=== PATIENT | male | born 2000 | race African-American/Black ===

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

== ENCOUNTER 2019-02-08 14:35 | Emergency (ER) | payer OTHER, MEDICAID ==
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
[2019-02-08 15:15] LABS: MUDS CUTOFF CONCENTRATIONS CUTOFF CONC BELOW:
[2019-02-08 15:16] LABS: BILIRUBIN,URINE NEGATIVE (NEGATIVE); GLUCOSE, URINE (UA) NEGATIVE (NEGATIVE); KETONES,URINE (UA) NEGATIVE (NEGATIVE); LEUKOCYTE ESTERASE, URINE NEGATIVE (NEGATIVE); NITRITE,URINE NEGATIVE (NEGATIVE); OCCULT BLOOD,URINE NEGATIVE (NEGATIVE); PH,URINE 8.5 PH (5.0-7.5); PROTEIN,URINE NEGATIVE (NEGATIVE); UROBILINOGEN,URINE 0.2 (NORMAL) E.U./dL (NORMAL)
[2019-02-08 15:17] LABS: CLARITY,URINE CLEAR (CLEAR)
[2019-02-08 15:26] LABS: BASOPHILS % (AUTO) 0.5 %; EOSINOPHILS # (AUTO) 0.1 10^3/uL (0.0-0.7); HGB - HEMOGLOBIN 13.7 g/dL (14.0-18.0); LYMPHOCYTES # (AUTO) 1.5 10^3/uL (1.5-3.5); LYMPHOCYTES % (AUTO) 20.8 %; MEAN CORPUSCULAR HEMOGLOBIN 27.2 pg (27.0-31.0); MEAN CORPUSCULAR VOLUME 82.4 fL (80.0-94.0); MEAN PLATELET VOLUME 7.9 fL (7.4-11.4); MONOCYTES # (AUTO) 0.7 10^3/uL (0.0-1.0); MONOCYTES % (AUTO) 9.7 %; NEUTROPHILS # (AUTO) 4.7 10^3/uL (1.5-6.6); PLT - PLATELET COUNT 246 10^3/uL (130-450); RED BLOOD COUNT 5.05 10^6/uL (4.70-6.10); RED CELL DISTRIBUTION WIDTH 14.6 % (12.0-15.0)
[2019-02-08 15:32] LABS: AMPHETAMINE SCREEN,URINE NEGATIVE (NEGATIVE); BENZODIAZEPINES SCREEN, URINE NEGATIVE (NEGATIVE); COCAINE SCREEN URINE NEGATIVE (NEGATIVE); METHADONE SCREEN, URINE NEGATIVE (NEGATIVE); METHAMPHETAMINES SCREEN, URINE NEGATIVE (NEGATIVE); OPIATE SCREEN, URINE NEGATIVE (NEGATIVE); OXYCODONE SCREEN, URINE NEGATIVE (NEGATIVE); PROPOXYPHENE SCREEN, URINE NEGATIVE (NEGATIVE); TRICYCLIC ANTIDEPRESSANT,URINE NEGATIVE (NEGATIVE)
[2019-02-08 15:39] LABS: ACETAMINOPHEN < 10 ug/mL (10-30); ALBUMIN 4.1 g/dL (3.2-5.5); ALBUMIN/GLOBULIN RATIO 1.2 (1.0-2.2); ALKALINE PHOSPHATASE 56 IU/L (42-121); ALT ALANINE AMINOTRANSFERASE 27 IU/L (10-60); AST ASPARTATE AMINOTRANSFERASE 30 IU/L (10-42); BILIRUBIN,TOTAL 0.6 mg/dL (0.2-1.0); BUN - BLOOD UREA NITROGEN 20 mg/dL (6-20); CALCIUM 9.5 mg/dL (8.5-10.3); CARBON DIOXIDE - CO2 21 mmol/L (21-32); CHLORIDE 107 mmol/L (101-111); CREATININE 1.1 mg/dL (0.6-1.2); GFR - MDRD 105 (>89); GLUCOSE 86 mg/dL (70-100); LIPASE 27 U/L (22-51); SALICYLATE < 6.0 mg/dL; SODIUM 138 mmol/L (135-145); TOTAL PROTEIN 7.6 g/dL (6.7-8.2)
[2019-02-08 15:41] LABS: VALPROIC ACID (DEPAKOTE) 55.1 ug/mL
[2019-02-08 17:35] VITALS: BP 125/83
== END 2019-02-08 17:48 | disposition home or self-care (01) ==
LOC: ED 14:35
DX: R45.851 Suicidal ideations (principal); F32.9 Major depressive disorder, single episode, unspecified
CPT/HCPCS: 36415; 80053; 80164; 80306; 80307; 80320; 80329; 81001; 81003; 83690; 84443; 85025; 87086; 99283; 99284

== ENCOUNTER 2021-01-12 08:00 | Outpatient (CLI) | payer BC, MEDICAID | END 2021-01-12 23:59 | disposition home or self-care (01) | LOC: LAB.N 08:00 | PROVIDERS: ATTEND Nurse Practitioner | DX: L02.91 Cutaneous abscess, unspecified (principal) | CPT/HCPCS: 87070; 87205 ==

== ENCOUNTER 2021-02-12 16:04 | Outpatient (CLI) | payer BC, MEDICAID | END 2021-02-12 16:05 | disposition home or self-care (01) | LOC: COV 16:04 | PROVIDERS: ATTEND Surgery | DX: Z01.812 Encounter for preprocedural laboratory examination (principal); L73.2 Hidradenitis suppurativa; Z20.822 Contact with and (suspected) exposure to COVID-19 ==

== ENCOUNTER 2021-02-15 12:01 | Day surgery (SDC) | payer BC, MEDICAID ==
--- OUTSIDE RECORDS SUMMARY | 2021-02-15 12:04 | EXTERNAL MEDICAL SUMMARY RPT | Continuity of Care Document ---
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 All 20210112 Tobacco use and exposure All 20210112 Tobacco smoking status NHIS All 20210112 Never smoker All 20210112 Hidradenitis All 20210112 Hidradenitis suppurativa All 20210112 Details of drug misuse behavior All 20210112 Cutaneous abscess, unspecified All 20210112 Cellulitis and abscess of unspecified s ites All 20210112 CULTURE WOUND All 20210112 Alcohol use All 20210112 Abscess All Results Vital Signs date measurement value source 20210112 weight_standard 240 lb 20210112 weight_metric 108.86 kg 20210112 temperature_standard 98.8 F 20210112 temperature_metric 37.11 C 20210112 respiration_rate 18 /min 20210112 height_standard 67 in 20210112 height_metric 170.18 cm 20210112 heart_rate 81 /min 20210112 BP_systolic 119 mm[Hg] 20210112 BP_diastolic 75 mm[Hg] 20210112 BMI 37.73 kg/m2
[2021-02-15] MEDS ORDERED: ceFAZolin 2 GM/50 ML 2 GM/50 ML BAG IV ONE (12:16)
[2021-02-15] MEDS ORDERED: LACTATED RINGERS 1,000 ML IV ONE ×2 (12:29→15:43)
== END 2021-02-15 12:02 | disposition home or self-care (01) ==
LOC: SDS 12:01
PROVIDERS: ATTEND Surgery
DX: Z53.9 Procedure and treatment not carried out, unspecified reason (principal)
CPT/HCPCS: J0690; J7120

== ENCOUNTER 2021-02-20 06:13 | Day surgery (SDC) | payer BC, MEDICAID ==
--- OUTSIDE RECORDS SUMMARY | 2021-02-20 06:16 | EXTERNAL MEDICAL SUMMARY RPT | Continuity of Care Document ---
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
[2021-02-20] MEDS ORDERED: ceFAZolin 2 GM/50 ML 2 GM/50 ML BAG IV ONE (09:30)
[2021-02-20] MEDS ORDERED: LACTATED RINGERS 1,000 ML IV ONE (10:12)
--- NOTE | 2021-02-20 11:26 | ANESTHESIA ---
Pre-Anesthesia VS, & Labs - Diagnosis hidradenitis suppurativa - Procedure axillary wide excision Vital Signs: Temp Pulse Resp BP Pulse Ox 36.7 C 69 16 134/78 H 96 02/20/21 10:12 02/20/21 10:12 02/20/21 10:12 02/20/21 10:12 02/20/21 10:12 Height: 5 ft 9 in Weight (kg): 115.8 kg Body Mass Index: 37.7 BMI Classification: Obese - NPO >8 hours Home Medications and Allergies metFORMIN [Glucophage] 500 mg PO BID 04/13/18 Divalproex ER [Depakote ER] 500 - 1,000 mg PO BID 02/08/19 ziprasidone HCL [Geodon] 60 mg PO BID 02/13/21 Allergies/Adverse Reactions: Allergies Allergy/AdvReac Type Severity Reaction Status Date / Time No Known Drug Allergies Allergy Verified 02/08/19 14:41 Anes History & Medical History - Anesthetic History Anesthesia Complications: reports: No previous complications Family history of Anesthesia Complications: Denies Family history of Malignant Hyperthermia: Denies - Medical History Cardiovascular: reports: None Pulmonary: reports: None Gastrointestinal: reports: None Urinary: reports: None Neuro: reports: None Musculoskeletal: reports: None Endocrine/Autoimmune: reports: None Blood Disorders: reports: None Skin: reports: None Smoking Status: Never smoker Psychosocial: reports: Other (mood disorder) History of Cancer?: No - Surgical History Eyes Ears Nose Throat (EENT): reports: Tonsil/Adenoidectomy Exam General: Alert, Oriented x3, Cooperative Dental: WNL Mouth Openin Fingerbreadth Neck Mobility: Normal Mallampati classification: II Thyromental Distance: 4-6 cm Respiratory: Lungs clear Cardiovascular: Regular rate Abdomen: Normal bowel sounds Extremities: No clubbing Neurological: Normal gait Mental/Cognitive Status: Alert/Oriented X3 Plan Anesthesia Type: General Consent for Procedure(s) Verified and Reviewed: Yes Code Status: Attempt Resuscitation ASA classification: 2-Mild systemic disease Is this case an emergency?: No
[2021-02-20] MEDS ORDERED: LIDOCAINE 1% 50 ML MDV ONE (11:28)
[2021-02-20] MEDS ORDERED: BUPIVACAINE 0.5%-EPI 1:200000 PF 30 ML VIAL ONE (11:28)
[2021-02-20] MEDS ORDERED: fentaNYL 100 MCG/2 ML VIAL ONE ×2 (11:54→13:05)
[2021-02-20] MEDS ORDERED: LIDOCAINE-MPF 2% 5 ML VIAL ONE (11:54)
[2021-02-20] MEDS ORDERED: PROPOFOL 200 MG/20 ML VIAL IVP ONE (11:54)
[2021-02-20] MEDS ORDERED: MIDAZOLAM 2 MG/2 ML VIAL ONE ×2 (11:54→12:16)
[2021-02-20] MEDS ORDERED: BUPIVACAINE 0.5%-EPI 1:200000 PF 30 ML VIAL SUBQ ONE ×2 (13:01→13:48)
[2021-02-20] MEDS ORDERED: LIDOCAINE 1% 50 ML MDV ID ONE ×2 (13:01)
[2021-02-20] MEDS ORDERED: BACITRACIN ZINC OINT 14 GM TOP ONE (13:22)
[2021-02-20] MEDS ORDERED: BACITRACIN ZINC OINT 1 PACKET TOP ONE (13:22)
--- NOTE | 2021-02-20 13:58 | OPERATIVE REPORT ---
Operative Report - General Procedure Date: 02/20/21 Planned Procedure: 1. Wide local excision of right axillary hidradenitis suppurativa 2. Possible wide local excision of left axillary hidradenitis suppurativa 3. Other indicated procedures Pre-Op Diagnosis: Hidradenitis Suppuritiva, B/L axillary Procedure Performed: 1. Wide local excision of right axillary hidradenitis suppurativa 2. Reconstructive rhomboid advancement flap for right axillary defect 3. Drain placement right axilla Post Op Diagnosis: Same - Procedure Note Primary Surgeon: Opal Secondary Surgeon: Sydnie Anesthesia Provider: Nyasia Anesthesia Technique: General ET tube, General LMA, Local Pathology: Right Axillary Hidradenitis Right Axillary Deep Margin Drain/Tube Type: Esdras drain Indications: See EMR Findings: See Op Report Complications: NONE - Other Other Information/Narrative: OPERATIVE REPORT: The patient was taken to the operating room after informed consent was obtained and confirmed. The patient was kept supine on the stretcher, at which time the patient was placed for bilateral lower extremity serial compression devices and induced for general endotracheal anesthesia the patient was abducted for bilateral arms in anticipation of possible bilateral axillary wide local excision with reconstruction. The patient was already consented and identified and marked for both areas. Patient was prepped and draped in the usual sterile fashion. Timeout is called and agreed to by all in the room. With the patient appropriately positioned and again time-out called and agreed upon, a lacrimal duct probe was placed through the communicating sinus of the hidradenitis which revealed extensive disease in the right axillary region. Given the extent of this and the necessary reconstruction necessary we opted to only progress with this one side at this time given the anticipated pain. Patient is also [id number] and would be best served to do this sequentially. Findings are as follows: 1. This region was approximately 7 to 8 cm in posterior anterior dimension. It spanned craniocaudal approximately 3 to 4 cm. 2. This area would be difficult to close transversely and a appropriate longitudinal incision require extensive resection unnecessarily. Thus at this time we opted to consider a rhomboid rotational flap for reconstruction. 3. There was no active infectious process interfering with the possibility of proceeding with a definitive closure. Given the size of defect, the hidradenitis was excised to healthy tissue using Bovie electrocautery. Again primary closure was not a function given the risk of tension with arm abduction. Thus we planned rhomboid rotational advancement flap. We also considered local wound care with ultimate possible wound VAC therapy and ultimate skin grafting however this would also carry with it the significant inconvenience. Wide local excision excision and primary closure with local tissue advancement seen the most appropriate response. Additional deep margin was taken to assure no residual disease. Thus, a local RHOMBOID advancement flap was planned with a flap of tissue suitable to address resulting defect after resection. This was harvested from right chest fat pad. Size was approximately 10-12 cm by 10-12 cm. The lipo-fas cial pedicle was kept intact. Once it was appropriately sized, this was rotated to cover the defect; deep dermals of 2-0 PDS were used to reapproximate the tissues. Dermal sutures of 3-0 Monocryl were used to reapproximate the skin edge as well. We used 4-0 Monocryl for subcuticular. Wound was irrigated extensively prior to closure. With the rhomboid advanced and rotated into place, the excised area of the axilla was completely covered by a lipodermato island of tissue, which would provide sufficient coverage to prevent and reduce the risk of failure. There was no significant tension. The harvest site was also closed in interrupted fashion using deep dermals of 2-0 and 3-0 PDS and Monocryl respectively. With rhomboid flap rotated into place with no tension, it was hemostatic, and v iable. The flap was without ischemic changes. Hemostasis was maintained and achieved. A Esdras YASMANI drain was placed to prevent seroma and hematoma, which would potentially compromise the flap as well. The wound was dressed with the dermabond skin closure system across all suture lines. At this time, all counts for sponges, needles, and instruments had already been confirmed as correct. There were no complications. The patient tolerated procedure well. The patient was taken to post-anesthesia care unit in stable condition. Present for the entirety of this operative intervention. Please note that voice recognition software was used to transcribe this note and inadvertent errors might persist in spite of review and editing. I am obliged to you for your attention. I am thankful to you for allowing me to participate with you in this care of this patient.
[2021-02-20] MEDS ORDERED: HYDROmorphone 0.5 MG/0.5 ML SYRINGE IVP PRN (14:01)
[2021-02-20] MEDS ORDERED: LACTATED RINGERS 150 ML IV ONE (14:01)
[2021-02-20] MEDS ORDERED: oxyCODONE 5 MG TABLET PO PRN (14:01)
--- NOTE | 2021-02-20 14:04 | PROVIDER PROGRESS NOTE ---
Progress Note - Brief Op Note Procedure Date: 02/20/21 Planned Procedure: 1. Wide local excision of right axillary hidradenitis suppurativa 2. Possible wide local excision of left axillary hidradenitis suppurativa 3. Other indicated procedures Pre-Op Diagnosis: Hidradenitis Suppuritiva, B/L axillary Procedure Performed: 1. Wide local excision of right axillary hidradenitis suppurativa 2. Reconstructive rhomboid advancement flap for right axillary defect 3. Drain placement right axilla Post Op Diagnosis: Same - Procedure Note Primary Surgeon: Opal Secondary Surgeon: Sydnie Anesthesia Provider: Nyasia Anesthesia Technique: General ET tube, General LMA, Local Pathology: Right Axillary Hidradenitis Right Axillary Deep Margin Drain/Tube Type: Esdras drain Indications: See EMR Findings: See Op Report Complications: NONE
--- NOTE | 2021-02-20 14:54 | ANESTHESIA POST OP EVALUATION ---
Anesthesia Post Eval - Post Anesthesia Eval Vitals: Last Vital Signs Temp 37.0 C 02/20/21 14:49 Pulse 74 02/20/21 14:49 Resp 15 02/20/21 14:49 BP 159/89 H 02/20/21 14:49 Pulse Ox 98 02/20/21 14:49 CV Function Including HR & BP: Stable Pain Control: Satisfactory Nausea & Vomiting: Negative Mental Status: Baseline Respiratory Status: Airway Patent Hydration Status: Satisfactory Anesthesia Complications: None
[2021-02-20] MEDS ORDERED: LACTATED RINGERS 1,000 ML IV SCH (15:00)
[2021-02-20 15:15] VITALS: BP 145/65
== END 2021-02-20 06:14 | disposition home or self-care (01) ==
LOC: SDS 06:13
PROVIDERS: ATTEND Surgery
PROC: 0JX60ZZ Transfer Chest Subcutaneous Tissue and Fascia, Open Approach (ICD-10-PCS; 2021-02-20)
PROC: 0JB60ZZ Excision of Chest Subcutaneous Tissue and Fascia, Open Approach (ICD-10-PCS; 2021-02-20)
PROC: 0JBD0ZZ Excision of Right Upper Arm Subcutaneous Tissue and Fascia, Open Approach (ICD-10-PCS; principal; 2021-02-20 11:15)
DX: L73.2 Hidradenitis suppurativa (principal)
CPT/HCPCS: 11451; 14301; 14302; A9270; J0690; J7120

== ENCOUNTER 2022-02-19 17:32 | Emergency (ER) | payer OTHER, MEDICAID ==
[2022-02-19 17:43] VITALS: BP 139/89
--- NOTE | 2022-02-19 18:33 | CT Report ---
PROCEDURE: HEAD WO INDICATIONS: head injury 1 week ago, continued headaches TECHNIQUE: Noncontrast 4.5 mm thick angled axial sections acquired from the foramen magnum to the vertex. For r adiation dose reduction, the following was used: automated exposure control, adjustment of mA and/or kV according to patient size. COMPARISON: 11/22/2019. FINDINGS: Image quality: Excellent. CSF spaces: Basal cisterns are patent. No extra-axial fluid collections. Ventricles are normal in size and shape. Brain: No midline shift. No intracranial masses or hemorrhage. Jaramillo-white matter interface is norm al. Skull and face: Calvarium and visualized facial bones are intact, without suspicious lesions. Sinuses: Visualized sinuses and mastoids are clear. IMPRESSION: Stable CT evaluation of the head without acute intracranial abnormalities or acute jeremiah rial fractures. No mass or mass effect. Reviewed by: Axel Soler MD on 02/19/2022 6:32 PM PDT Approved by: Axel Soler MD on 02/19/2022 6:32 PM PDT Station ID: [id number]
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
== END 2022-02-19 18:57 | disposition home or self-care (01) ==
LOC: ED 17:32
DX: S06.0X0A Concussion without loss of consciousness, initial encounter (principal); Y33.XXXA Other specified events, undetermined intent, initial encounter; H11.33 Conjunctival hemorrhage, bilateral
CPT/HCPCS: 99284

== ENCOUNTER 2022-10-11 13:08 | Emergency (ER) | payer OTHER, MEDICAID ==
--- NOTE | 2022-10-11 13:55 | XRAY Report ---
PROCEDURE: Shoulder 3 View RT INDICATIONS: trauma TECHNIQUE: 3 views of the shoulder were acquired. COMPARISON: None. FINDINGS: Bones: No acute fracture. There is widening of the acromioclavicular and coracoclavicular intervals with elevation of the distal clavicle. Glenohumeral joint is intact. No suspicious bony lesions. Vis ualized ribs appear intact. Soft tissues: No suspicious soft tissue calcifications. Visible portions of the right lung appear n ormal. IMPRESSION: 1. Findings consistent with a type III AC separation. Reviewed by: Beronica Wu MD on 10/11/2022 12:54 PM [place] Approved by: Beronica Wu MD on 10/11/2022 12:54 PM [facility] Station ID: [id number]
--- NOTE | 2022-10-11 14:35 | ED Physician Documentation ---
History of Present Illness - Stated complaint Stated Complaint: R SHLDR INJ - Chief complaint Chief Complaint: Trauma Ext - Additonal information Additional information: 22-year-old male presents to the emergency department for evaluation of acute right shoulder pain. He was playing football when he went for a catch and landed on his right shoulder. He felt immediate pain in the AC joint area and had difficulty moving the arm. He is right arm dominant. No history of previous injury. History obtained by patient. Good historian Review of Systems Constitutional: reports: Fever Musculoskeletal: reports: Joint pain Neurologic: denies: Headache, Head injury, LOC PD PAST MEDICAL HISTORY - Past Medical History Cardiovascular: None Respiratory: None Neuro: None Endocrine/Autoimmune: None GI: None : None HEENT: None Psych: Depression, Anxiety, Other Musculoskeletal: None Derm: None - Past Surgical History Past Surgical History: Yes HEENT: Tonsil/Adenoidectomy - Present Medications Home Medications: Ambulatory Orders Medication Instructions Recorded Confirmed metFORMIN [Glucophage] 500 mg PO BID 04/13/18 02/20/21 Divalproex ER [Depakote ER] 500 - 1,000 mg PO BID 02/08/19 02/20/21 ziprasidone HCL [Geodon] 60 mg PO BID 02/13/21 02/20/21 Sulfamethox/Trimeth 800/160 1 tablet PO BID 7 Days #14 tablet 02/20/21 [Bactrim Ds] oxyCODONE [Roxicodone] 5 mg PO Q6H PRN #24 tablet 02/20/21 - Allergies Allergies/Adverse Reactions: Allergies Allergy/AdvReac Type Severity Reaction Status Date / Time No Known Drug Allergies Allergy Verified 02/19/22 17:43 - Social History Does the pt smoke?: No Smoking Status: Never smoker Does the pt drink ETOH?: No Does the pt have substance abuse?: No - Immunizations Immunizations are current?: Yes - POLST Patient has POLST: No PD ED PE EXPANDED - General General: Alert, No acute distress - Extremities Extremities: Right shoulder (Point tenderness at the right AC joint. Mild swelling noted without ecchymosis. Patient has about 100 degrees of abduction of the right shoulder. Negative drop arm. 2+ distal radial pulse. Neurovascular intact otherwise) Results - Vitals Vitals: Vital Signs - 24 hr 10/11/22 13:20 Temperature 36.1 C L Heart Rate 87 Respiratory 16 Rate Blood Pressure 171/111 H O2 Saturation 98 Oxygen O2 Source Room air - Rads (name of study) right shoulder xr Radiology: Final report received (Widening of the AC and coracoclavicular intervals with elevation of the distal clavicle. Consistent with type III AC separation) PD Medical Decision Making - ED course Complexity details: reviewed results, considered differential, d/w patient ED course: 22-year-old male presents emergency department for evaluation of acute right shoulder injury sustained when playing football and landing on the shoulder During a catch. He has some swelling and focal tenderness at the AC joint. He is otherwise neurovascularly intact. The x-ray confirms a type III AC joint separation. This finding was discussed with the patient and his visitor at the bedside. I am making the recommendation for a sling, icing the extremity and alternation of Tylenol and ibuprofen for discomfort. I have also made the advice for him to follow closely with a sports teacher or an orthopedic surgeon and he said he is quite active otherwise. The patient declined administration of analgesics today in the emergency department. I am recommending [id number] Tylenol and ibuprofen once discharged Routine care and emergent return precautions otherwise discussed Departure - Departure Disposition: 01 Home, Self Care Clinical Impression: Acromioclavicular joint separation, type 3 Qualifiers: Encounter type: initial encounter Laterality: right Qualified Code(s): S43.101A - Unspecified dislocation of right acromioclavicular joint, initial encounter Condition: Stable Record reviewed to determine appropriate education?: Yes Instructions: Treatment for Shoulder Separation Comments: You were seen today because you developed pain in your right shoulder after falling on it while playing football. The x-ray of your shoulder confirms a type III AC joint separation Type III injuries, initial treatment is nonoperative, consisting of rest, ice, immobilization with a sling, and analgesics. Initially I recommend 600 mg of ibuprofen taken with food 2-3 times a day and alternating with 500 mg of Tylenol also 2-3 times a day. A sling is helpful for two to three weeks, depending on patient symptoms, to aid healing and relieve pain. You can begins range of motion (ROM) and strengthening exercises as soon as the pain is tolerable. The intensity of these rehabilitation exercises is increased gradually and as tolerated based primarily on pain. Patients may return to normal activity between 6 and 12 weeks following injury, depending on the demands of the activity. Athletes may return to competition once full ROM and strength is regained. I do recommend that you follow closely with Dr. Irving. If you are not improving initially as you anticipate you would benefit from referral to a sports teacher or an orthopedic surgeon
[2022-10-11 14:49] VITALS: BP 182/98
== END 2022-10-11 14:49 | disposition home or self-care (01) ==
LOC: ED 13:08
DX: S43.101A Unspecified dislocation of right acromioclavicular joint, initial encounter (principal); Y93.61 Activity, american tackle football
CPT/HCPCS: 99283

== ENCOUNTER 2024-05-04 11:32 | Outpatient (CLI) | payer OTHER, MEDICAID ==
--- NOTE | 2024-05-04 19:00 | XRAY Report ---
Finger(s) LT HISTORY: 23 years of age, LEFT RING FINGER PAIN TECHNIQUE: Finger(s) LT COMPARISON: None. FINDINGS/IMPRESSION: Mildly displaced avulsion fracture of the dorsal aspect of the fourth distal phalangeal base. No disl ocation. Joint spaces are well-maintained. Reviewed by: Patricia Estes MD on 05/04/2024 6:59 PM PDT Approved by: Patricia Estes MD on 05/04/2024 6:59 PM PDT Station ID: [id number]
== END 2024-05-04 11:33 | disposition home or self-care (01) ==
LOC: DI 11:32
PROVIDERS: ATTEND Physician Assistant Medical
DX: S62.635A Displaced fracture of distal phalanx of left ring finger, initial encounter for closed fracture (principal)

== ENCOUNTER 2024-05-13 08:29 | Outpatient (CLI) | payer OTHER, MEDICAID ==
--- NOTE | 2024-05-13 12:52 | XRAY Report ---
PROCEDURE: Finger(s) LT INDICATIONS: DISPLACED FX OD DISTAL PHALANX L RING FINGER TECHNIQUE: AP hand, 2 views of the fourth finger(s) acquired. COMPARISON: X-ray finger 05/04/2024 FINDINGS: Bones: Persistent appearance of displaced fracture at the base of the fourth distal phalanx. Overall appearance is unchanged. There is intra-articular extension. Soft tissues: Unchanged intra-articular avulsed fracture at the fourth distal phalanx. IMPRESSION: No acute bony abnormality. Reviewed by: Roberta Whiteside MD on 05/13/2024 12:51 PM PDT Approved by: Roberta Whiteside MD on 05/13/2024 12:51 PM PDT Station ID: [id number]
== END 2024-05-13 08:30 | disposition home or self-care (01) ==
LOC: DI 08:29
PROVIDERS: ATTEND Physician Assistant Surgical
DX: S62.635A Displaced fracture of distal phalanx of left ring finger, initial encounter for closed fracture (principal)

== ENCOUNTER 2024-06-08 22:30 | Emergency (ER) | payer OTHER, MEDICAID ==
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
[2024-06-09] MEDS ORDERED: iohexoL-300 100 ML VIAL ONE
[2024-06-09 00:21] LABS: BASOPHILS % (AUTO) 0.5 %; EOSINOPHILS # (AUTO) 0.2 10^3/uL (0.0-0.7); EOSINOPHILS % (AUTO) 2.7 %; HCT - HEMATOCRIT 42.6 % (42.0-52.0); HGB - HEMOGLOBIN 12.8 g/dL (14.0-18.0); LYMPHOCYTES # (AUTO) 3.3 10^3/uL (1.5-3.5); LYMPHOCYTES % (AUTO) 39.8 %; MEAN CORPUSCULAR HEMOGLOBIN 24.9 pg (27.0-31.0); MEAN CORPUSCULAR VOLUME 82.7 fL (80.0-94.0); MEAN PLATELET VOLUME 9.7 fL (7.4-11.4); MONOCYTES # (AUTO) 0.7 10^3/uL (0.0-1.0); MONOCYTES % (AUTO) 8.9 %; NEUTROPHILS # (AUTO) 3.9 10^3/uL (1.5-6.6); NEUTROPHILS % (AUTO) 47.7 %; PLT - PLATELET COUNT 279 10^3/uL (130-450); RED BLOOD COUNT 5.15 10^6/uL (4.70-6.10); WHITE BLOOD COUNT 8.2 x10^3/uL (4.8-10.8)
[2024-06-09 01:13] LABS: ALBUMIN 3.9 g/dL (3.2-5.5); ALBUMIN/GLOBULIN RATIO 1.1 (1.0-2.2); BILIRUBIN,TOTAL 0.3 mg/dL (0.2-1.0); POTASSIUM 3.7 mmol/L (3.5-4.5); TOTAL PROTEIN 7.3 g/dL (6.4-8.9)
[2024-06-09] MEDS: iohexoL-300 100 ML VIAL IVP ONE (01:43)
--- NOTE | 2024-06-09 01:46 | XRAY Report ---
PROCEDURE: Chest 2V INDICATIONS: right abd/chest pain with pleuritic component TECHNIQUE: 2 views of the chest were acquired. COMPARISON: None. FINDINGS: Surgical changes and devices: None. Lungs and pleura: No dense consolidation or pleural effusion. Low lung volumes. Mediastinum: Normal heart size Bones and chest wall: No suspicious bony lesions. Overlying soft tissues appear unremarkable. IMPRESSION: Low lung volumes. No acute radiographic abnormality. Reviewed by: Nahun Tse MD on 06/09/2024 1:45 AM PDT Approved by: Nahun Tse MD on 06/09/2024 1:45 AM PDT Station ID: [id number]
[2024-06-09 01:47] LABS: CALCIUM 9.1 mg/dL (8.5-10.3)
--- NOTE | 2024-06-09 01:49 | CT Report ---
PROCEDURE: Abdomen/Pelvis W INDICATIONS: abd. pain CONTRAST: OMNI 300, 100mls TECHNIQUE: After the administration of intravenous contrast, a CT scan of the abdomen and pelvis was performed. Images were recorded and evaluated at appropriate window settings. Reformats: coronal and sagittal. F or radiation dose reduction, the following was used: automated exposure control, adjustment of mA and /or kV according to patient size. COMPARISON: None FINDINGS: Image quality: Diagnostic Lower chest: Basal atelectasis. Mildly patulous distal esophagus Liver: Unremarkable Gallbladder and biliary system: Underdistended gallbladder. Nondilated biliary system Pancreas: No ductal dilation Spleen: Nonenlarged Adrenals: No discrete nodules Kidneys: No solid mass. No hydronephrosis or obstructing calcified stone. Vessels and lymph nodes: The main portal vein is patent. No abdominal aortic aneurysm. No pathologic lymph nodes by size criteria. Bowel and peritoneum: There is moderate gastric distention, without small bowel obstruction. No patho logic ascites. Mild to moderate fecal loading. The appendix is nondilated. Body wall: Unremarkable Pelvis: Bladder is unremarkable. Prostate is not well evaluated on this study Bones: No acute or suspicious osseous finding. IMPRESSION: Mild to moderate gastric distention. No small bowel obstruction. Mild to moderate fecal loading in th e colon. Nondilated appendix. Reviewed by: Nahun Tse MD on 06/09/2024 1:48 AM PDT Approved by: Nahun Tse MD on 06/09/2024 1:48 AM PDT Station ID: [id number]
[2024-06-09 02:58] VITALS: BP 162/98; O2SAT 98
== END 2024-06-09 02:53 | disposition home or self-care (01) ==
LOC: ED 22:30
DX: S29.011A Strain of muscle and tendon of front wall of thorax, initial encounter (principal); S39.011A Strain of muscle, fascia and tendon of abdomen, initial encounter; V89.2XXA Person injured in unspecified motor-vehicle accident, traffic, initial encounter
CPT/HCPCS: 36415; 71046; 74177; 80053; 83690; 85025; 99283; Q9967